=== PATIENT | female | born 1995 ===

== ENCOUNTER 2018-01-14 10:48 | Emergency (ER) | payer SELFPAY ==
--- NOTE | 2018-01-14 11:08 | UC ---
Laceration HPI - HPI Summary HPI Summary: Pt presents with laceration on the top of her left ear. She tells me that in the middle of the night she woke up suddenly to gets some water and fell getting out of bed. Hit the left side of her head/face on the floor. No LOC. Then went back to bed. This morning she woke up with blood on her pillow and realized she had cut her ear - came to Urgent Care. Denies headache, dizziness, blurred vision, n/v. - History Of Current Complaint Stated Complaint: LAC ABOVE EAR Time Seen by Provider: 01/14/18 11:07 Hx Obtained From: Patient Laceration Location: Ear Mechanism Of Injury: Blunt Trauma Onset/Duration: Sudden Onset Severity: Mild Pain Intensity: 3 Pain Scale Used: 0-10 Numeric - Allergies/Home Medications Allergies/Adverse Reactions: Allergies Allergy/AdvReac Type Severity Reaction Status Date / Time No Known Allergies Allergy Verified 01/14/18 11:17 Home Medications: Home Medications NK [No Home Medications Reported] 01/14/18 [History Confirmed 01/14/18] PMH/Surg Hx/FS Hx/Imm Hx Previously Healthy: Yes - Family History Known Family History: Positive: Unknown - Social History Occupation: Student Lives: Dormitory/Roommates Alcohol Use: Occasionally Substance Use Type: None Smoking Status (MU): Never Smoked Tobacco Review of Systems Constitutional: Negative Skin: Other - Laceration to left ear Eyes: Negative ENT: Negative Respiratory: Negative Cardiovascular: Negative Neurological: Negative Psychological: Negative All Other Systems Reviewed And Are Negative: Yes Physical Exam Triage Information Reviewed: Yes Appearance: Well-Appearing, No Pain Distress, Well-Nourished Vital Signs Reviewed: Yes Eyes: Positive: Conjunctiva Clear, Other: - EOMI. PERRLA ENT: Positive: Hearing grossly normal, TMs normal. Negative: TM bulging, TM dull, TM red Neck: Positive: Supple, Other: - FROM. NTTP Respiratory: Positive: Lungs clear, Normal breath sounds, No respiratory distress Cardiovascular: Positive: RRR, No Murmur, Pulses Normal Neurological: Positive: Alert, Other: - AAOx3. CNII-XII grossly intact. Psychological: Positive: Age Appropriate Behavior Skin: Positive: Other - At the helix of the left ear there is a 7mm linear laceration. No FB, bleeding, or discharge Laceration Repair - Laceration Repair 1 Description: Linear Laceration Size After Repair: Length (cm) - 0.7 Type Injection: Local Anesthesia Used: 2.0% Lido Cleansing Completed Via Routine Prep: Yes Closure Material: Sutures Closure Method: Single Layer Suture Of: Skin Suture Type: Nylon - FIVE 6-0 Laceration Course/Dx - Course/Dx Course Of Treatment: A time out was performed, witnessed, and signed. The area was cleansed with 50mL sterile saline. 2mL of 2% lidocaine without epi was administered and good anesthetization was achieved. In the usual sterile fashion , FIVE 6-0 nylon sutures were placed. Pt tolerated procedure well. - Differential Dx - Laceration/Wound Provider Diagnoses: 7mm laceration to left ear Discharge - Discharge Plan Condition: Stable Disposition: HOME Patient Education Materials: Care For Your Stitches (DC), Laceration (ED) Referrals: No Primary Care Phys,NOPCP [Primary Care Provider] - Additional Instructions: If you develop a fever, shortness of breath, chest pain, new or worsening symptoms - please call your PCP or go to the ED. 1) Please keep the area clean, dry, and intact for the next 24 hours. 2) If you develop a fever, colored or thick discharge, increased pain or swelling - please call your PCP or go to the ED. 3) Please return or see [facility] in 4-5 days to have your FIVE sutures removed.
[2018-01-14] MEDS ORDERED: Lidocaine 2% PF * 5 ML VIAL INJ ONE (11:23)
== END 2018-01-14 12:09 | disposition home or self-care (01) ==
LOC: UCEAST 10:48
DX: S01.312A Laceration without foreign body of left ear, initial encounter (principal); W06.XXXA Fall from bed, initial encounter; Y93.89 Activity, other specified; Y92.003 Bedroom of unspecified non-institutional (private) residence as the place of occurrence of the external cause
CPT/HCPCS: 12011; 99201; G0463